=== PATIENT | female | born 1960 | race African-American/Black ===

== ENCOUNTER 2020-07-11 22:45 | Emergency (ER) | payer MEDICARE, MEDICAID ==
[~2020-07-11] VITALS: Ht 152.4 cm; Wt 65.0 kg
[2020-07-12 02:19] LABS: BASOPHILS % 0.4 % (0.0-2.0); HEMATOCRIT. 40.7 % (36.0-48.0); HEMOGLOBIN. 13.6 g/dL (12.0-16.0); MEAN CORPUSCULAR HEMOGLOBIN 31.7 pg (28.0-32.0); MEAN PLATELET VOLUME 7.9 fl (7.4-10.4); MONOCYTES % 8.1 % (2.0-8.0); NEUTROPHILS % 61.5 % (40.0-76.0); PLATELET 197 x1000/uL (130-400); RED BLOOD CELL COUNT 4.28 mill/uL (4.2-5.4); RED CELL DISTRIBUTION WIDTH 12.8 % (11.6-14.6)
[2020-07-12 03:16] LABS: CHLORIDE 105 mEq/L (98-107)
[2020-07-12] MEDS ORDERED: IBUP-2028 MT (05:25)
[2020-07-12 05:49] VITALS: BP 155/74
== END 2020-07-12 05:49 | disposition home or self-care (01) ==
LOC: ER 22:45
DX: I10 Essential (primary) hypertension (principal); E78.00 Pure hypercholesterolemia, unspecified; K21.9 Gastro-esophageal reflux disease without esophagitis
CPT/HCPCS: 36415; 71045; 80053; 84484; 85025; 99284